=== PATIENT | female | born 1960 | race Caucasian/White ===

== ENCOUNTER 2022-01-05 11:05 | Inpatient (IN) ==
--- NOTE | 2021-11-30 11:58 | PAT Medication Instructions ---
Medication Instructions Date of Service November 30, 2021 Home Medications abatacept 125 mg/mL subcutaneous syringe (Orencia) 125 mg subcut WK acetaminophen 650 mg tablet,extended release 650 mg PO Q12H PRN calcium carbonate 600 mg-vitamin D3 10 mcg (400 unit) tablet (Calcium 600 + D(3)) 2 tab PO QAM diltiazem HCl 180 mg capsule,extended release 24 hr, controlled 180 mg PO QAM fluoxetine 60 mg tablet 60 mg PO QAM folic acid 1 mg tablet 3 mg PO QAM gabapentin 600 mg tablet 600 mg PO BID hydroxychloroquine 200 mg tablet (Plaquenil) 200 mg PO BID ibandronate 150 mg tablet (Boniva) 150 mg PO MONTHLY leucovorin calcium 5 mg tablet 5 mg PO QAM levothyroxine 150 mcg tablet 150 mcg PO QAM losartan 100 mg-hydrochlorothiazide 25 mg tablet 1 tab PO QAM methotrexate 2.5 mg/mL oral solution 25 mg WK multivitamin 1 tab PO QAM simvastatin 10 mg tablet 10 mg PO HS sulfasalazine 500 mg tablet 0.5 g PO BID Continue as directed ibandronate 150 mg tablet (Boniva) 150 mg PO MONTHLY (not day of surgery) ASK your prescriber and surgeon abatacept 125 mg/mL subcutaneous syringe (Orencia) 125 mg subcut WK hydroxychloroquine 200 mg tablet (Plaquenil) 200 mg PO BID sulfasalazine 500 mg tablet 0.5 g PO BID STOP 7 days before surgery methotrexate 2.5 mg/mL oral solution 25 mg WK DO NOT take the morning of surgery calcium carbonate 600 mg-vitamin D3 10 mcg (400 unit) tablet (Calcium 600 + D(3)) 2 tab PO QAM folic acid 1 mg tablet 3 mg PO QAM leucovorin calcium 5 mg tablet 5 mg PO QAM losartan 100 mg-hydrochlorothiazide 25 mg tablet 1 tab PO QAM multivitamin 1 tab PO QAM Take morning of surgery With a small sip of water, OTHERWISE NOTHING TO EAT OR DRINK AFTER MIDNIGHT: acetaminophen 650 mg tablet,extended release 650 mg PO Q12H PRN(if needed) diltiazem HCl 180 mg capsule,extended release 24 hr, controlled 180 mg PO QAM fluoxetine 60 mg tablet 60 mg PO QAM gabapentin 600 mg tablet 600 mg PO BID levothyroxine 150 mcg tablet 150 mcg PO QAM Take evening before surgery acetaminophen 650 mg tablet,extended release 650 mg PO Q12H PRN(if needed) gabapentin 600 mg tablet 600 mg PO BID simvastatin 10 mg tablet 10 mg PO HS Other Notes If you have any questions please call us at [phone] or [phone] or [phone] or [phone]
--- NOTE | 2021-12-06 11:10 | Anesthesiology Consultation ---
Date of Service December 06, 2021 Assessment & Plan (1) Encounter for pre-operative examination: Chart Review Chart Review: Acceptable Risk for Surgery (pending preop Covid testing results ) and Patient seen in Pre Admission Testing Per PAT appt on 12/06/21, patient denies any recent travel or large group activities. No known Covid positive exposures or Covid related symptoms. No known Covid infection in the past 90 days. Pt is vaccinated for Covid. Preop Covid testing scheduled 01/03/22 = will await results. Educated on importance of self quarantining, social distancing and wearing mask in public for the patient one week prior to surgery and after Covid testing done Right TKA 04/20/16= Done under SAB at L3-4 with 1 attempt. History Surgery Operation Date: 01/05/22 07:00 Proposed Procedures p Right Reverse Total Shoulder Arthroplasty - Favian Bashir M.D. Height/Weight Height: 5 ft 1 in Weight: 98.8 kg Allergies Allergy/AdvReac Type Severity Reaction Status Date / Time No Known Drug Allergies Allergy Unknown NKDA Verified 11/25/21 10:22 cabbage AdvReac Unknown PT TOLD Verified 11/25/21 10:22 SHE WAS ALLERGIC tomato AdvReac Unknown SEVERE Verified 11/25/21 10:22 INDIGESTION Medications Home Medications Medication Instructions Recorded Confirmed Last Taken abatacept 125 mg/mL subcutaneous 125 mg subcut WK 11/25/21 11/25/21 Unknown syringe (Orencia) acetaminophen 650 mg 650 mg PO Q12H PRN Pain 11/25/21 11/25/21 Unknown tablet,extended release calcium carbonate 600 mg-vitamin 2 tab PO QAM 11/25/21 11/25/21 Unknown D3 10 mcg (400 unit) tablet (Calcium 600 + D(3)) diltiazem HCl 180 mg 180 mg PO QAM 11/25/21 11/25/21 Unknown capsule,extended release 24 hr, controlled fluoxetine 60 mg tablet 60 mg PO QAM 11/25/21 11/25/21 Unknown folic acid 1 mg tablet 3 mg PO QAM 11/25/21 11/25/21 Unknown gabapentin 600 mg tablet 600 mg PO BID 11/25/21 11/25/21 Unknown hydroxychloroquine 200 mg tablet 200 mg PO BID 11/25/21 11/25/21 Unknown (Plaquenil) ibandronate 150 mg tablet (Boniva) 150 mg PO MONTHLY 11/25/21 11/25/21 Unknown leucovorin calcium 5 mg tablet 5 mg PO QAM 11/25/21 11/25/21 Unknown levothyroxine 150 mcg tablet 150 mcg PO QAM 11/25/21 11/25/21 Unknown losartan 100 1 tab PO QAM 11/25/21 11/25/21 Unknown mg-hydrochlorothiazide 25 mg tablet methotrexate 2.5 mg/mL oral 25 mg WK 11/25/21 11/25/21 Unknown solution multivitamin 1 tab PO QAM 11/25/21 11/25/21 Unknown simvastatin 10 mg tablet 10 mg PO HS 11/25/21 11/25/21 Unknown sulfasalazine 500 mg tablet 0.5 g PO BID 11/25/21 11/25/21 Unknown Past Medical History Medical History Anxiety Bulging lumbar disc Chronic back pain Depression Hyperlipidemia Hypertension Hypothyroidism Osteoarthritis Osteopenia Rheumatoid arthritis Follows with rheum- Dr. Guthrie- constant discomfort but stable Exercise / Class Metabolic Activity II 4-5 Yardwork/Stairs/Walk up hill (one flight of stairs- no chest pain or SOB ) Past Family History Family History Sister Family history of reaction to anesthesia SLOW TO WAKE UP Family/Other Family history of diabetes mellitus HALF BROTHER Past Surgical History Surgical History Fusion of spine Lumbar History of colonoscopy History of tonsillectomy History of tooth extraction WISDOM TEETH History of total knee replacement R/L Hx of hand surgery LEFT Past Anesthesia History No Hx of Anesthesia Complications and No Family Hx of Anesthesia Complications (with exception to sister- slow to wake- just groggy- no reintubation or ICU stay ) History of PONV No Hx of PONV and No Hx of Motion Sickness Social History Smoking Status: Never smoker Do You Dip or Chew Tobacco: No Hx Alcohol Use: Yes alcohol intake frequency: holidays/special occasions only Hx Substance Use: No Review of Systems Hx of snoring- no hx of sleep study Patient denies chest pain, shortness of breath, dyspnea on exertion, reflux, cough, wheezing, palpitations. No hx of seizures, stroke, MD. No hx of blood clots or blood transfusions Physical Exam Vital Signs VITALS BP 125/58 P 76 TEMP 97.5 SP02 99% RESP 16 Constitutional no acute distress ENMT Mouth: no TMJ clicking Thyromental Distance: > or= 3.5 Finger Breadths (3.5) Mallampati Class: II Missing molar Crowns to side teeth Neck neck extension not limited Respiratory normal respiratory effort; no respiratory distress Auscultation: lungs clear to auscultation bilaterally; no wheezes Cardiovascular Rate/Rhythm: regular rate and regular rhythm Heart Sounds: no murmur Vessels: no carotid bruit Musculoskeletal Spine: no pain with cervical ROM Extremities: extremities normal to inspection Psychiatric Orientation: alert Lab Results Anesthesia Preop Results Results Anesthesia Widget: WBC 8.44 K/ul (4.8-10.8) 12/06/21 Hgb 13.9 g/dl (12.0-16.0) 12/06/21 Hct 42.8 % (34.1-44.9) 12/06/21 Plt 439 K/uL (130-400) H 12/06/21 Na 140 mmol/L (136-145) 12/06/21 K 3.9 mmol/L (3.5-5.1) 12/06/21 Cl 99 mmol/L (98-107) 12/06/21 CO2 33 mmol/L (21-32) H 12/06/21 BUN 18 mg/dl (6-23) 12/06/21 Creat 0.87 mg/dl (0.6-1.2) 12/06/21 Glucose Level 95 mg/dl (70-99(Fasting)) 12/06/21 PT 10.8 Seconds (9.0-12.0) 12/06/21 PTT 29.0 Seconds (21.0-31.0) 12/06/21 INR 1.0 (0.9-1.1) 12/06/21 HA1c 5.9 % (4.5-5.6) H 12/06/21 Urine Color Yellow 12/06/21 Urine Appearance Clear (Clear) 12/06/21 Urine pH 6.5 (4.5-7.5) 12/06/21 Urine Specific Maurice 1.013 (1.000-1.030) 12/06/21 Urine Protein Negative (Negative) 12/06/21 Urine Glucose (UA) Negative (Negative) 12/06/21 Urine Ketones Negative (Negative) 12/06/21 Urine Blood Negative (Negative) 12/06/21 Urine Nitrite Negative (Negative) 12/06/21 Urine Bilirubin Negative (Negative) 12/06/21 Urine Urobilinogen Negative (Negative) 12/06/21 Urine Leukocyte Esterase Trace (Negative) H 12/06/21 Urine WBC (Auto) 1-5 /hpf (0-5) 12/06/21 Urine RBC (Auto) 0-4 /hpf (0-4) 12/06/21 Urine Hyaline Casts (Auto) 0 /lpf (0-5) 12/06/21 Urine Epithelial Cells (Auto) 10-20 /lpf (0-5) H 12/06/21 Urine Bacteria (Auto) Negative (Negative) 12/06/21 Blood Type A Positive 12/06/21 Antibody Screen NEGATIVE 12/06/21 Testing Electrocardiogram Date: 12/06/21 Findings: + NSR @ (68bpm ) Poor R wave progression, consider anterior MD vs lead placement vs LVH. When compared to EKG from March 10, 2016- no significant change was found per cardio. Chest X-Ray Date: 12/06/21 Findings: + NAD Cervical Spine Date: 12/06/21 FINDINGS: No fractures or subluxations are identified. Degenerative changes are noted in the cervical spine. The alignment is anatomic Prevertebral soft tissues are within normal limits. IMPRESSION: Degenerative changes without evidence of acute abnormality.
--- NOTE | 2022-01-04 16:34 | History & Physical Report ---
Date of Service January 04, 2022 Assessment & Plan (1) Primary osteoarthritis, right shoulder: Plan: She has severe right shoulder glenohumeral joint arthritis, and has failed a course of conservative treatment including glenohumeral joint steroid injections. She would like to proceed with total shoulder arthroplasty, and I think this is reasonable. She does have primary glenohumeral joint arthritis, but based on her MRI, she has diffuse high-grade partial-thickness tearing of the rotator cuff. I therefore advised her that a reverse total shoulder arthroplasty would be her best option to avoid a postoperative rotator cuff rupture after an anatomic total shoulder that would require revision to reverse. She is in agreement. We discussed expected outcomes with reverse total shoulder arthroplasty versus anatomic, and we reviewed the differences with a model today. She again has rheumatoid arthritis, and would have to stop her DMARDs (Orencia) for 2 weeks prior and 2 weeks postoperatively. She may continue her other rheumatoid medications, and we went through this in detail today. She is otherwise fairly healthy, but we decided on an overnight stay in the hospital. We will get her set up for a right reverse total shoulder arthroplasty. Risks, benefits, and alternatives of surgery were explained in detail. The surgical procedure, as well as postoperative recovery and rehabilitation, was also explained in detail. Risks include bleeding; infection; damage to surrounding structures such as nerves, blood vessels, and tendons that run in the area; persistent pain or stiffness; hardware failure; dislocation; brachial plexus palsy; blood clots; or need for further surgery. The patient understands all of this and wishes to proceed with surgery. Informed consent was obtained. History of Present Illness Chief Complaint: Right shoulder pain Primary Care Provider: Migdalia Ma MD Ms. Etta ahn. Again, she is a 61-year-old [id number] female with right shoulder pain for about the past year with gradual progressive worsening. She denies any specific injury. She denies any similar pain on her left shoulder. She has had progressive worsening of her motion and function in that right shoulder. It has progressed to the point where it is waking her up at night. It is making activities of daily living extremely difficult for her. She previously saw JAZZMINE Muñoz for this, who gave her a glenohumeral joint steroid injection. She reports no improvement in her pain with that injection. Of note, she has fairly severe rheumatoid arthritis, and is on Plaquenil, hydroxychloroquine, methotrexate, sulfasalazine, and Orencia. It looks like at least the Orencia would have to be stopped for any surgical procedure. Allergies Allergy/AdvReac Type Severity Reaction Status Date / Time No Known Drug Allergies Allergy Unknown NKDA Verified 11/25/21 10:22 cabbage AdvReac Unknown PT TOLD Verified 11/25/21 10:22 SHE WAS ALLERGIC tomato AdvReac Unknown SEVERE Verified 11/25/21 10:22 INDIGESTION Home Medications Medication Instructions Recorded Confirmed Type abatacept 125 mg/mL subcutaneous 125 mg subcut WK 11/25/21 11/25/21 History syringe (Orencia) acetaminophen 650 mg 650 mg PO Q12H PRN Pain 11/25/21 11/25/21 History tablet,extended release calcium carbonate 600 mg-vitamin 2 tab PO QAM 11/25/21 11/25/21 History D3 10 mcg (400 unit) tablet (Calcium 600 + D(3)) diltiazem HCl 180 mg 180 mg PO QAM 11/25/21 11/25/21 History capsule,extended release 24 hr, controlled fluoxetine 60 mg tablet 60 mg PO QAM 11/25/21 11/25/21 History folic acid 1 mg tablet 3 mg PO QAM 11/25/21 11/25/21 History gabapentin 600 mg tablet 600 mg PO BID 11/25/21 11/25/21 History hydroxychloroquine 200 mg tablet 200 mg PO BID 11/25/21 11/25/21 History (Plaquenil) ibandronate 150 mg tablet (Boniva) 150 mg PO MONTHLY 11/25/21 11/25/21 History leucovorin calcium 5 mg tablet 5 mg PO QAM 11/25/21 11/25/21 History levothyroxine 150 mcg tablet 150 mcg PO QAM 11/25/21 11/25/21 History losartan 100 1 tab PO QAM 11/25/21 11/25/21 History mg-hydrochlorothiazide 25 mg tablet methotrexate 2.5 mg/mL oral 25 mg WK 11/25/21 11/25/21 History solution multivitamin 1 tab PO QAM 11/25/21 11/25/21 History simvastatin 10 mg tablet 10 mg PO HS 11/25/21 11/25/21 History sulfasalazine 500 mg tablet 0.5 g PO BID 11/25/21 11/25/21 History Past Med/Surg History Medical History (Updated 01/04/22 @ 16:33 by Favian Bashir M.D.) Anxiety Bulging lumbar disc Chronic back pain Depression Hyperlipidemia Hypertension Hypothyroidism Osteoarthritis Osteopenia Prediabetes Per PCP records Rheumatoid arthritis Follows with rheum- Dr. Guthrie- constant discomfort but stable Surgical History Fusion of spine Lumbar History of colonoscopy History of tonsillectomy History of tooth extraction WISDOM TEETH History of total knee replacement R/L Hx of hand surgery LEFT Family History Sister Family history of reaction to anesthesia SLOW TO WAKE UP Family/Other Family history of diabetes mellitus HALF BROTHER Social History (Updated 11/25/21 @ 10:47 by Salena Herman RN) Smoking Status: Never smoker Second Hand Exposure: Yes (SPOUSE SMOKED); Hx Alcohol Use: Yes Hx Substance Use: No Preferred Language: Chadian Communication Ability: Effective Byproducts Pump Operator Required: No Beliefs That Will Affect Care: None marital status: / Current Living Situation: Alone current occupational status: retired Feels Safe at Home: Yes Assistive Devices: Glasses Physical Exam Physical Exam: Examination of the right shoulder shows significant limitation in shoulder range of motion due to pain, with palpable crepitus during motion. She can only achieve about 85 degrees of active abduction, external rotation to about 20 degrees, and internal rotation to the PSIS level. Rotator cuff strength is well maintained. Results & Data ([facility]) Diagnostic Findings Previous x-rays of the right shoulder from August 2021 were reviewed. They show fairly severe arthritic degeneration of the glenohumeral joint. No obvious proximal migration of the humeral head. On the axillary view it looks like fairly concentric erosion of the glenoid, with no excessive posterior glenoid wear or posterior subluxation. Right shoulder MRI from November 15 was reviewed. It shows the obvious severe glenohumeral joint arthritis with very large osteophyte formation. Unfortunately, she has fairly high-grade diffuse tearing of the rotator cuff involving mainly the supraspinatus and infraspinatus tendons. There is fairly diffuse but overall mild fatty atrophy of the rotator cuff muscle bellies.
[~2022-01-05 11:05] MED LIST: ACETAMINOPHEN 500 MG TAB PO SCH; BUPIVACAINE 0.5 % 5 MG/1 ML PF 10ML VIAL ONE; CeleBREX 200 MG CAP PO SCH; FAMOTIDINE 20 MG TAB PO SCH; GABAPENTIN 600 MG DOSE PO SCH; General Order Problem(s) SCH; LR 15ML/HR IV SCH; METOCLOPRAMIDE HCL 10 MG TABLET PO SCH; TRANEXAMIC ACID 1,000 MG **IV Pre-op IV SCH; ceFAZolin 2000MG 2,000 MG/15 ML SYR IV SCH; dexAMETHasone 4 MG TAB PO SCH
--- NOTE | 2022-01-05 12:27 | History & Physical Bridge Note ---
Date of Service January 05, 2022 History & Physical Bridge Note I have examined the patient, reviewed the History & Physical and in the interval since the performance of the History & Physical I have noted the following changes of clinical significance: no changes noted
[2022-01-05] MEDS ORDERED: PROPOFOL IV EMULSION 10 MG/ML 20 ML VIAL IV ONE (13:04)
[2022-01-05] MEDS ORDERED: MIDAZOLAM HCL 1 MG/ML 2ML VIAL ONE (13:25)
[2022-01-05] MEDS ORDERED: fentaNYL citrate 100 MCG/2 ML VIAL ONE ×2 (13:26→15:02)
[2022-01-05] MEDS ORDERED: ONDANSETRON INJ 2 MG/ML 2 ML VIAL IV PRN ×2 (13:29→17:59)
[2022-01-05] MEDS ORDERED: ePHEDrine sulfate 50 MG/ML AMP IV PRN (13:29)
[2022-01-05] MEDS ORDERED: ATROPINE SULFATE 0.1 MG/ML 10ML SYR IV PRN (13:29)
[2022-01-05] MEDS ORDERED: SUGAMMADEX SODIUM 200 MG/2 ML VIAL IV ONE (14:50)
[2022-01-05] MEDS ORDERED: ONDANSETRON INJ 2 MG/ML 2 ML VIAL ONE (14:51)
[2022-01-05] MEDS ORDERED: KETOROLAC 30 MG/ML VIAL ONE (14:52)
--- NOTE | 2022-01-05 15:49 | Operative Report ---
Post Operative Report Pre & Post Diagnosis Operation Date: 01/05/22 13:50 Preoperative diagnosis: Right shoulder osteoarthritis with deficient rotator cuff Postoperative diagnosis: Right shoulder osteoarthritis with deficient rotator cuff I identified the patient and participated in the time-out.: Yes Procedure Operation Date: 01/05/22 13:50 Right reverse total shoulder arthroplasty (64533) Open biceps tenodesis (11583) - Favian Bashir MD Surgeon Favian Bashir MD Education Manager Edmundo Suárez PA-C Estimated Blood Loss 50 Findings Consistent with Post-Op Diagnosis Specimens None Drains None Anesthesia Type General Regional Complications none Disposition Disposition: Recovery Room Indications Ms. Quiles is a 61-year old female with severe chronic pain in her right shoulder. History, clinical exam, and imaging were consistent with the above diagnosis. Risks, benefits, and alternatives of surgery were explained in detail. The patient understood all this and wished to proceed. Description of Procedure Components Implanted: Tornier Reverse Total Shoulder implants Perform glenoid baseplate: 25mm, 15 degree full wedge with 6.5mm central screw and 5.0mm peripheral screws Glenosphere: 36mm standard Ascend Flex humeral stem: 3B Standard length (74mm) Humeral tray: 3.5 mm offset, +0mm thickness Polyethylene insert: 36mm, +6mm thickness Patient was identified in the preoperative holding area. Operative extremity was marked. Regional blockade was given by the Anesthesia Staff. Patient was then brought back to the operating room, and general anesthesia was induced without complication. Appropriate weight-based dose of Ancef was infused intravenously for antibiotic prophylaxis. The patient was then placed in the beachchair position. Right arm was then prepped and draped in a standard sterile fashion using Chlorhexidine prep. A standard deltopectoral incision was made through the skin and subcutaneous tissue. The cephalic vein was identified and retracted medially. Small branches to the deltoid were coagulated as necessary. The clavipectoral fascia was then incised and the subdeltoid space was opened. The rotator cuff was found to be deficient, and I therefore decided to perform a reverse total shoulder arthroplasty as planned preoperatively. The biceps tendon was identified within the bicipital groove and tenodesed at the superior border of the pectoralis tendon with #2 FiberWire suture. The biceps tendon was then divided proximal to the tenodesis site and the rotator interval was opened. The proximal portion of the biceps tendon was excised. The remaining subscapularis tendon was elevated subperiosteally off of the lesser tuberosity. The glenohumeral joint was then dislocated, and large osteophytes were debrided with a ronguer. The intramedullary canal of the humerus was then opened with a canal finder. The humeral head cut was then made in the appropriate inclination and version using the cutting guide. The humeral canal was then sequentially broached to the appropriate size. A protective cap was then placed on top of the humeral trial. I then turned my attention to the glenoid. The proximal stump of the biceps tendon was excised, along with the labrum circumferentially around the glenoid. The Blueprint drill guide was then positioned on the glenoid, and the guidepin was then inserted. The 15 degree angled reamer was then inserted over the guidepin and an reamed to an appropriate depth. The central screw hole was drilled, and appropriate length 6.5mm central screw was selected. The baseplate was then implanted into place according to our preoperative Blueprint plan by tightening down the central screw. A peripheral 5mm nonlocking screw was placed superiorly first for additional compression of the baseplate, and then additional locking 5 mm peripheral screws were placed to complete fixation of the baseplate. Glenosphere was then impacted and secured. A trial humeral tray and insert were placed on the trial humeral stem, and a trial reduction was carried out. Once I achieved acceptable joint stability and range of motion with the trial implants, the final humeral implants were assembled on the back table and then impacted into position. I then took the shoulder through full range of motion to ensure good stability and acceptable motion. Wound was then copiously irrigated with sterile saline. Deep fascia was closed with 0 V-lock suture. Subcutaneous tissue was closed with 2-0 V-lock, and skin was closed with 3-0 V-lock. Skin was then sealed with Dermabond. Sterile dressings were then applied with a waterproof silver-impregnated dressing, and the arm was placed into a sling. The patient was awakened from anesthesia and taken to the Post Anesthesia Care Unit in stable condition. There were no immediate complications from the procedure. I was present and scrubbed for the entire procedure, with the exception of final skin closure and dressing application. Due to the complex nature of the procedure, the entire surgery was performed with the operational assistance of Edmundo Suárez PA-C. The preschool teacher assistant, under direct supervision, was involved in the performance of all aspects of the surgical procedure including hemostasis, tissue incision and retraction, instrument management, patient positioning, and wound closure. I attest to the content of the Intraoperative Record and any orders documented therein. Any exceptions are noted below.
[2022-01-05] MEDS: fentaNYL citrate 100 MCG/2 ML VIAL IV PRN ×2 (16:35→16:40)
--- NOTE | 2022-01-05 17:04 | Anesthesiology Progress Note ---
Date of Service January 05, 2022 Anesthesia Post Procedure Vital Signs Vital Signs: Temp Pulse Pulse Resp BP Pulse Ox O2 Del Method 01/05/22 16:55 36.6 C 81 19 143/90 H 95 Nasal Cannula 01/05/22 16:45 36.3 C L 79 16 153/82 H 95 Nasal Cannula 01/05/22 16:35 81 16 141/96 H 97 Room Air 01/05/22 16:25 82 18 170/96 H 100 Oxymask 01/05/22 16:15 86 18 164/97 H 97 Oxymask 01/05/22 16:08 36.4 C L 86 18 159/95 H 95 Oxymask 01/05/22 11:38 36.9 C 87 20 144/82 H 95 Room Air O2 Flow Rate 01/05/22 16:55 2 01/05/22 16:45 2 01/05/22 16:35 01/05/22 16:25 4 01/05/22 16:15 4 01/05/22 16:08 6 01/05/22 11:38 Pain Intensity Right Shoulder: Pain Intensity: 4 Transfer of Care Handoff Completed per policy Notes Mental Status: alert / awake / arousable and participated in evaluation Patient Amnestic to Procedure: Yes Nausea / Vomiting: adequately controlled Pain: adequately controlled Airway Patency, RR, SpO2: stable & adequate BP & HR: stable & adequate Hydration State: stable & adequate Anesthetic Complications: no major complications apparent
--- NOTE | 2022-01-05 17:37 | XRay Report ---
XR shoulder RT min 2V routine CLINICAL HISTORY: Post shoulder surgery TECHNIQUE: 3 views of the right shoulder were obtained. Comparison: Comparison is made to right shoulder MRI 11/15/2021 FINDINGS: Patient is status post shoulder arthroplasty with expected postsurgical changes including soft tissue swelling and subcutaneous emphysema. A bony irregularity is seen in the second image along the proxi mal aspect of the humerus, a fracture cannot be excluded. No fracture of the humeral shaft is seen. L ungs are underinflated. Aortic calcifications are seen. IMPRESSION: Cannot exclude a fracture of the proximal humerus, best seen on the lateral radiograph. If there is c linical concerns, additional views of the shoulder can be acquired. ACT 112: Negative or not required by law. Electronically signed by: Prateek Krause M.D. 01/05/2022 5:34 PM
[2022-01-05] MEDS ORDERED: METOCLOPRAMIDE HCL INJ 5 MG/ML 2 ML VIAL IV PRN (17:59)
[2022-01-05] MEDS ORDERED: SODIUM CHLORIDE 0.9% 1000ML 1,000 ML IV SCH (17:59)
[2022-01-05] MEDS ORDERED: oxyCODONE HCL IR 5 MG TAB (IMMEDIATE RELEASE) PO PRN (17:59)
[2022-01-05] MEDS ORDERED: bisacodyL 10 MG SUPP PR PRN (17:59)
[2022-01-05] MEDS ORDERED: NALOXONE HCL 0.4 MG/1 ML VIAL/CARP IV PRN (17:59)
[2022-01-05] MEDS ORDERED: MAGNESIUM HYDROXIDE SUSP 30 ML UDC PO PRN (17:59)
[2022-01-05] MEDS: ACETAMINOPHEN 500 MG TAB PO SCH (19:09)
[2022-01-05] MEDS: IBUPROFEN 600 MG TAB PO SCH (19:09)
[2022-01-05] MEDS: DOCUSATE SODIUM 100 MG CAP PO SCH (20:13)
[2022-01-05] MEDS: GABAPENTIN 600 MG TAB PO SCH (20:14)
[2022-01-05] MEDS: HYDROXYCHLOROQUINE SULFATE 200 MG TAB PO SCH (20:14)
[2022-01-05] MEDS ORDERED: SIMVASTATIN 10 MG TAB PO SCH (21:00)
[2022-01-05] MEDS ORDERED: sulfaSALAzine 500 MG TABLET PO SCH (21:00)
[2022-01-05] MEDS ORDERED: SENNA 8.6 MG TAB PO SCH (21:00)
[2022-01-05] MEDS: ceFAZolin 2000MG 2,000 MG/15 ML SYR IV SCH (22:06)
[2022-01-06] MEDS: ACETAMINOPHEN 500 MG TAB PO SCH ×3 (00:05→11:53)
[2022-01-06] MEDS: IBUPROFEN 600 MG TAB PO SCH ×3 (01:48→13:41)
[2022-01-06] MEDS: ceFAZolin 2000MG 2,000 MG/15 ML SYR IV SCH (05:39)
[2022-01-06] MEDS ORDERED: LEVOTHYROXINE SODIUM 150 MCG TABLET PO SCH (06:30)
[2022-01-06 07:29] LABS: Hematocrit (blood only) 35.2 % (34.1-44.9); Hemoglobin 11.5 g/dl (12.0-16.0); Immature Granulocytes # (auto) 0.04 K/uL (0.00-0.02); Immature Granulocytes % (auto) 0.4 %; Lymphocytes # (auto) 0.91 K/uL (1.2-3.4); Lymphocytes % (auto) 8.1 %; Mean Corpuscular Hgb Conc 32.7 g/dL (32.0-36.0); Mean Corpuscular Volume 94.9 fL (80.0-100.0); Mean Platelet Volume 10.7 fL (9.4-12.3); Monocytes # (auto) 0.67 K/uL (0.24-0.82); Monocytes % (auto) 5.9 %; Neutrophils # (auto) 9.68 K/uL (1.4-6.5); Neutrophils % (auto) 85.6 %; Platelet Count 350 K/uL (130-400); RDW Coefficient of Variation 14.9 % (11.5-14.5); RDW Standard Deviation 52.3 fL (36.4-46.3); Red Blood Count 3.71 M/uL (3.93-5.22)
[2022-01-06] MEDS ORDERED: sulfaSALAzine 500 MG TABLET PO SCH (08:00)
--- NOTE | 2022-01-06 08:27 | Orthopedic Progress Note ---
Date of Service January 06, 2022 Assessment & Plan (1) Primary osteoarthritis, right shoulder: Plan: Postop day 1 status post right reverse total shoulder arthroplasty PT/OT protocols. NWWendy STONE DVT prophylaxis - ASA daily, scd's Pain management as written. BMP pending DC planning - planning for OPPT upon discharge. Admission and Anticipated Discharge Date Admission Date: January 05, 2022 Subjective Patient sitting up in chair at the bedside. No complaints this morning. Pain is controlled. She states that her block is still working fairly well. Denies shortness of breath, chest pain, lightheadedness. She is hoping to go home today. Physical Exam Physical Exam: Dressings are clean, dry, and intact. Sling is in place. She has good motion of all of her fingers although thumb is a bit weak yet. She also states that she has moderate decrease sensation in the thumb which is residual from the block. Fingers 2 through 5 have slight tingling. She has good wrist range of motion at this time. She states she does have weakness in the arm itself trying to move it which is also residual from her nerve block. Capillary refill is less than 2 seconds. Results & Data ([facility]) Vital Signs (Past 12 Hours) Vital Signs Temp Pulse Resp BP Pulse Ox O2 Del Method 01/06/22 07:23 36.7 C 77 17 132/76 94 Room Air 01/06/22 03:17 36.5 C 75 18 120/77 91 Room Air 01/05/22 23:47 36.5 C 88 18 123/73 92 Room Air Laboratory Results Laboratory Results WBC 11.30 K/ul (4.8-10.8) H 01/06/22 06:45 RBC 3.71 M/uL (3.93-5.22) L 01/06/22 06:45 Hgb 11.5 g/dl (12.0-16.0) L 01/06/22 06:45 Hct 35.2 % (34.1-44.9) 01/06/22 06:45 MCV 94.9 fL (80.0-100.0) 01/06/22 06:45 MCH 31.0 pg (25.0-34.0) 01/06/22 06:45 MCHC 32.7 g/dL (32.0-36.0) 01/06/22 06:45 RDW Std Deviation 52.3 fL (36.4-46.3) H 01/06/22 06:45 RDW Coeff of Tonya 14.9 % (11.5-14.5) H 01/06/22 06:45 Plt Count 350 K/uL (130-400) 01/06/22 06:45 MPV 10.7 fL (9.4-12.3) 01/06/22 06:45 Immature Gran % (Auto) 0.4 % 01/06/22 06:45 Neut % (Auto) 85.6 % 01/06/22 06:45 Lymph % (Auto) 8.1 % 01/06/22 06:45 Harney % (Auto) 5.9 % 01/06/22 06:45 Eos % (Auto) 0.0 % 01/06/22 06:45 Baso % (Auto) 0.0 % 01/06/22 06:45 Neut # (Auto) 9.68 K/uL (1.4-6.5) H 01/06/22 06:45 Lymph # (Auto) 0.91 K/uL (1.2-3.4) L 01/06/22 06:45 Harney # (Auto) 0.67 K/uL (0.24-0.82) 01/06/22 06:45 Eos # (Auto) 0.00 K/uL (0-0.50) 01/06/22 06:45 Baso # (Auto) 0.00 K/uL (0-0.2) 01/06/22 06:45 Immature Gran # (Auto) 0.04 K/uL (0.00-0.02) H 01/06/22 06:45 Sodium Cancelled 01/06/22 06:45 Potassium Cancelled 01/06/22 06:45 Chloride Cancelled 01/06/22 06:45 Carbon Dioxide Cancelled 01/06/22 06:45 Anion Gap Cancelled 01/06/22 06:45 BUN Cancelled 01/06/22 06:45 Creatinine Cancelled 01/06/22 06:45 Est Cr Clr Drug Dosing Cancelled 01/06/22 06:45 Est GFR ( Amer) Cancelled 01/06/22 06:45 Est GFR (Non-Af Amer) Cancelled 01/06/22 06:45 BUN/Creatinine Ratio Cancelled 01/06/22 06:45 Glucose Cancelled 01/06/22 06:45 Calcium Cancelled 01/06/22 06:45 SARS-CoV-2, RNA, NAAT NEGATIVE (NEGATIVE) 01/05/22 11:18 Impressions Shoulder X-Ray 01/05/22 16:11 XR shoulder RT min 2V routine CLINICAL HISTORY: Post shoulder surgery TECHNIQUE: 3 views of the right shoulder were obtained. Comparison: Comparison is made to right shoulder MRI 11/15/2021 FINDINGS: Patient is status post shoulder arthroplasty with expected postsurgical changes including soft tissue swelling and subcutaneous emphysema. A bony irregularity is seen in the second image along the proximal aspect of the humerus, a fracture cannot be excluded. No fracture of the humeral shaft is seen. Lungs are underinflated. Aortic calcifications are seen. IMPRESSION: Cannot exclude a fracture of the proximal humerus, best seen on the lateral radiograph. If there is clinical concerns, additional views of the shoulder can be acquired. ACT 112: Negative or not required by law. Electronically signed by: Prateek Krause M.D. 01/05/2022 5:34 PM
[2022-01-06] MEDS: DOCUSATE SODIUM 100 MG CAP PO SCH (08:30)
[2022-01-06] MEDS: GABAPENTIN 600 MG TAB PO SCH (08:30)
[2022-01-06] MEDS: HYDROXYCHLOROQUINE SULFATE 200 MG TAB PO SCH (08:31)
[2022-01-06] MEDS ORDERED: LOSARTAN/HCTZ 50/12.5MG TAB PO SCH (09:00)
[2022-01-06] MEDS ORDERED: CALCIUM 600MG + VIT D 400 IU TAB PO SCH (09:00)
[2022-01-06] MEDS ORDERED: FOLIC ACID 1 MG TAB PO SCH (09:00)
[2022-01-06] MEDS ORDERED: ASPIRIN 325 MG ECTAB PO SCH ×2 (09:00)
[2022-01-06] MEDS ORDERED: NON-FORMULARY MEDICATION (Multivitamin Tablet) PO SCH (09:00)
[2022-01-06] MEDS ORDERED: dilTIAZem HCL 180 MG CAPCR PO SCH (09:00)
[2022-01-06] MEDS ORDERED: FLUoxetine HCL 20 MG CAP PO SCH (09:00)
[2022-01-06] MEDS ORDERED: LEUCOVORIN CALCIUM 5 MG TAB PO SCH (09:00)
[2022-01-06] MEDS ORDERED: MULTIVITAMIN TAB PO SCH (09:00)
[2022-01-06 09:15] LABS: BUN Creatinine Ratio 28.9 (10-20); Calcium 8.8 mg/dl (8.5-10.1); Est GFR (African American) 96.8 ml/min; Est GFR (Non-African American) 83.5 ml/min; Potassium 3.8 mmol/L (3.5-5.1)
--- NOTE | 2022-01-06 16:57 | Discharge Summary ---
Date of Service January 06, 2022 Admission HPI Per Admitting Provider Ms. Quiles returns. Again, she is a 61-year-old [id number] female with right shoulder pain for about the past year with gradual progressive worsening. She denies any specific injury. She denies any similar pain on her left shoulder. She has had progressive worsening of her motion and function in that right shoulder. It has progressed to the point where it is waking her up at night. It is making activities of daily living extremely difficult for her. She previously saw JAZZMINE Muñoz for this, who gave her a glenohumeral joint steroid injection. She reports no improvement in her pain with that injection. Of note, she has fairly severe rheumatoid arthritis, and is on Plaquenil, hydroxychloroquine, methotrexate, sulfasalazine, and Orencia. It looks like at least the Orencia would have to be stopped for any surgical procedure. Principal Diagnosis Right shoulder osteoarthritis Discharge Data Allergies Allergy/AdvReac Type Severity Reaction Status Date / Time No Known Drug Allergies Allergy Unknown NKDA Verified 01/05/22 11:32 cabbage AdvReac Unknown PT TOLD Verified 01/05/22 11:32 SHE WAS ALLERGIC tomato AdvReac Unknown SEVERE Verified 01/05/22 11:32 INDIGESTION Procedures Performed Operation Date: 01/05/22 13:50 Actual Procedures p Right Reverse Total Shoulder Arthroplasty(Right) - Favian Bashir M.D. Ordered Studies 01/05/22 05:00 US - OR guided needle placemen Routine Hospital Course (1) Primary osteoarthritis, right shoulder: Patient underwent a right reverse total shoulder arthroplasty on the date of admission. Patient tolerated the procedure well and was transferred up to the general orthopedic surgery floor in stable condition. Perioperative antibiotic coverage was initiated, and continued for 24 hours postoperatively. DVT prophylaxis was initiated consisting of SCDs and aspirin 325 mg daily. Periop erative pain control regimen was transitioned to strictly oral pain medications by postoperative day 1. On postoperative day 1 the patient was doing very well. Pain was well controlled, and patient was mobilizing well with therapy. Patient was determined be safe and ready for discharge to home. Total Time Total Time Spent Total Time Spent (In Minutes): 15 Discharge Plan Discharge Items Patient Disposition: Home - Home Health Services Reason For Visit: Primary Osteoarthritis, Right Shoulder Unspecified Discharge Diagnosis: Right shoulder osteoarthritis Activity: Per Instructions section Non-emergency contact: Surgeon Call non-emergency contact if: your pain is not controlled, your temperature is above 101.5, your wound has increased redness and your wound has increased drainage Follow-up/Referrals: Migdalia Ma MD [Physician] - Favian Bashir M.D. [Physician] - Diet: Regular Addtl Attending Provider Instructions: Things to Watch Out For -Go to the Emergency Room if you have sudden onset of nausea, vomiting, chest pain, shortness of breath, or uncontrollable pain. -Call the clinic or go to the Emergency Room if you have a sudden increase in the amount of wound drainage or the drainage becomes thick, yellow or green, or foul-smelling. -For routine questions, call the clinic at [phone] during regular business hours (8am-5pm). For urgent issues after regular business hours, you may call the clinic to be connected to the on-call physician. Dressings -A special waterproof, silver-impregnated dressing was placed on your shoulder. Keep this dressing in place for 1 week after surgery. You may shower with the waterproof dressing in place, but do not soak the dressing in the bathtub or pool. -One week after surgery, you may remove the waterproof dressing. You may continue to shower, and let water run BRIEFLY over the incision, but do not soak the incision in the bathtub or pool for 2 weeks. You may also gently clean the incision with mild soap and water; pat the incision dry after cleaning-do not rub the incision. Apply a new dressing daily thereafter. Shoulder Exercises -Keep your operative shoulder in the sling for comfort, except as detailed below. -You should come out of the sling 4-5 times a day for passive pendulum exercises: lean over and swing your arm in a circular pattern. -You should also do active-assisted forward flexion exercises: use your opposite hand to lift your operative arm forward to 90 degrees. -Do not flex your elbow (curl motion) or supinate your forearm (rotating palm up) against resistance. -Do not use your arm to push yourself up out of bed or up from a seated position. Ice Pack -You may use an ice pack for pain relief. You should use it 20-30 minutes at a time. Place a towel between the ice pack and your skin to prevent frostbite. -You should use the ice pack fairly regularly for the first 1-2 weeks after surgery to help reduce pain and inflammation. -About 2 weeks after your surgery, you should start using heat to loosen up your shoulder prior to doing your stretching exercises, then use the cooling sleeve after your exercises are complete to reduce swelling and pain. Pain Medicines -Your prescriptions for pain medications have already been sent to the pharmacy on file at [facility]. -You have been prescribed an anti-inflammatory (Motrin/ibuprofen) and a non- narcotic pain medicine (Tylenol/acetaminophen). These are your primary pain medications. Take them each every 6 hours as instructed. It is recommended that you stagger these medicines every 3 hours (i.e. take ibuprofen at 8:00 am, then acetaminophen at 11:00 am, then ibuprofen at 2:00 pm, etc) -DO NOT take any additional anti-inflammatories (Advil, Aleve/naproxen, Mobic/meloxicam, Celebrex) or any additional Tylenol/acetaminophen products with these prescribed medications. -You have also been prescribed an additional narcotic pain medication (oxycodone). Take this medicine ONLY for breakthrough pain not controlled by the ibuprofen and acetaminophen. -Do not drive or operate heavy machinery while taking the narcotic medication. -Common side effects of narcotic pain medicines include itching, nausea, constipation, and feeling "loopy". However, if you develop a rash or hives, stop taking the medicine and call the clinic. If you develop swelling in your throat or difficulty breathing, go to the Emergency Room or call 911 IMMEDIATELY. -You may take over the counter stool softeners if needed for constipation. Aspirin -Take a full strength (325mg) aspirin every day for 4 weeks (28 days) to prevent blood clots. -If you were taking a baby aspirin (81mg) prior to surgery, you may resume taking this 81mg dose after you complete the 28-day course of the 325mg strength dose; do not take the 325mg dose in addition to your 81mg dose. -Be aware that you will bruise easier while taking Aspirin; this is normal. However, if you develop a significantly large area of swelling after an injury, or have a cut that will not stop bleeding, call the clinic or go to the Emergency Room immediately. Pending Studies at Discharge: No Stand-Alone Forms: My [facility], Smoking Cessation Medications and DC Order Prescriptions: Continued multivitamin Tablet 1 tab PO QAM gabapentin 600 mg Tablet 600 mg PO BID sulfasalazine 500 mg Tablet 0.5 g PO BID simvastatin 10 mg Tablet 10 mg PO HS losartan-hydrochlorothiazide 100-25 mg Tablet 1 tab PO QAM folic acid 1 mg Tablet 3 mg PO QAM hydroxychloroquine [Plaquenil] 200 mg Tablet 200 mg PO BID diltiazem HCl 180 mg Capsule,Ext.Rel 24h Degradable 180 mg PO QAM ibandronate [Boniva] 150 mg Tablet 150 mg PO MONTHLY calcium carbonate-vitamin D3 [Calcium 600 + D(3)] 600 mg-10 mcg (400 unit) Tablet 2 tab PO QAM fluoxetine 60 mg Tablet 60 mg PO QAM methotrexate 2.5 mg/mL Solution 25 mg WK levothyroxine 150 mcg Tablet 150 mcg PO QAM leucovorin calcium 5 mg Tablet 5 mg PO QAM Discontinued acetaminophen [Tylenol Extended Release] 650 mg Tablet Extended Release 650 mg PO Q12H PRN (Reason: Pain) Orencia 125 mg/mL Syringe 125 mg SUBCUT WK Discharge Orders: Discharge Order (Routine); Ordered 01/06/22 Ordered By: Kirk Marie Admission Data Admit Date/Time: 01/05/22 16:11 Attending Provider: Favian Bashir Admit Provider: Favian Bashir Primary Care Provider: Mariana Ballesteros Other Interventions: Discharge Summary Assessment (RN) Last Done: 01/06/22 11:20
== END 2022-01-06 14:19 | disposition home health service (06) | DRG 483 ==
LOC: ASU 11:05 → 3E 16:11